=== PATIENT | female | born 1945 | race Caucasian/White ===

== ENCOUNTER 2024-07-16 01:24 | Inpatient (IN) | payer MEDICARE, OTHER ==
[~2024-07-16] VITALS: Ht 167.6 cm; Wt 99.8 kg
[2024-07-16 01:59] LABS: BASOPHILS % 0.1 % (0.0-2.0); HEMATOCRIT. 38.6 % (36.0-48.0); HEMOGLOBIN. 12.8 g/dL (12.0-16.0); LYMPHOCYTES % 12.8 % (20.0-50.0); MEAN CORPUSCULAR HEMOGLOBIN 29.4 pg (28.0-32.0); MEAN CORPUSCULAR HGB CONC 33.1 g/dL (31.0-37.0); MEAN CORPUSCULAR VOLUME 88.9 fL (81.0-99.0); MEAN PLATELET VOLUME 8.4 fl (7.4-10.4); MONOCYTES % 3.2 % (2.0-8.0); NEUTROPHILS % 83.9 % (40.0-76.0); PLATELET 271 x1000/uL (130-400); RED BLOOD CELL COUNT 4.34 mill/uL (4.2-5.4); RED CELL DISTRIBUTION WIDTH 13.6 % (11.6-14.6)
[2024-07-16 02:21] LABS: CHLORIDE 103 mEq/L (98-107); SODIUM 137 mEq/L (136-145)
[2024-07-16 02:22] LABS: CALCIUM 9.6 mg/dL (8.7-10.4); CARBON DIOXIDE 24 mEq/L (21-32)
[2024-07-16 02:27] LABS: GLUCOSE 145 mg/dL (70-105); UREA NITROGEN BLOOD 23 mg/dL (9-23)
[2024-07-16 02:28] LABS: TROPONIN I HIGH SENSITIVITY 21 ng/L (3.0-34)
[2024-07-16] MEDS ORDERED: ACETAMINOPHEN 325MG TABLET PO ONE (04:00)
[2024-07-16 04:32] LABS: POTASSIUM 4.4 mEq/L (3.5-5.1)
[2024-07-16 04:33] LABS: CALCIUM 9.3 mg/dL (8.7-10.4)
[2024-07-16 04:37] LABS: CREATININE 1.1 mg/dL (0.6-1.0)
[2024-07-16 06:30] LABS: TROPONIN I HIGH SENSITIVITY 158 ng/L (3.0-34)
[2024-07-16] MEDS: ACETAMINOPHEN 325MG TABLET PO NR (09:16)
[2024-07-16] MEDS ORDERED: CLONIDINE 0.1MG TABLET PO PRN (12:15)
[2024-07-16] MEDS ORDERED: IPRATROPIUM/ALBUTEROL 0.5-3(2.5)MG/3ML NEB HHN PRN (12:15)
[2024-07-16] MEDS ORDERED: ONDANSETRON HCL 4MG/2ML INJ IV PRN (12:15)
[2024-07-16] MEDS ORDERED: MECLIZINE 12.5MG TABLET PO PRN (13:00)
[2024-07-16] MEDS: ENOXAPARIN 40MG/0.4ML SYR SUBCUT SCH (13:38)
[2024-07-16 20:00] VITALS: BP_SYST 136; BP_SYST 148; BP_DIAS 60; BP_DIAS 61; PULSE 52; PULSE 53; RESP 18; RESP 20; TEMP 36.33624; TEMP 36.8628; O2SAT 99
[2024-07-17] VITALS (7 sets, daily range): BP systolic 108–150; BP diastolic 50–103; PULSE 52–67; RESP 17–20; TEMP 36.05844–37.11408; O2SAT 95–100
[2024-07-17 02:51] LABS: CREATINE KINASE 144 IU/L (34-145)
[2024-07-17 03:23] LABS: TROPONIN I HIGH SENSITIVITY 4462 ng/L (3.0-34)
[2024-07-17] MEDS: ENOXAPARIN 100MG/ML SYR SUBCUT NR (05:56)
[2024-07-17 06:40] LABS: POTASSIUM 3.9 mEq/L (3.5-5.1)
[2024-07-17] MEDS: PANTOPRAZOLE 40MG DR TABLET PO SCH (06:40)
[2024-07-17 06:41] LABS: CALCIUM 9.3 mg/dL (8.7-10.4)
[2024-07-17 06:45] LABS: CREATININE 1.2 mg/dL (0.6-1.0)
[2024-07-17 06:47] LABS: T4 FREE 1.14 ng/dL (0.89-1.76)
[2024-07-17 06:48] LABS: THYROID STIMULATING HORMONE 5.09 uIU/mL (0.55-4.78)
[2024-07-17 06:52] LABS: BASOPHILS % 0.2 % (0.0-2.0); EOSINOPHILS % 1.2 % (0.0-5.0); HEMATOCRIT. 37.9 % (36.0-48.0); HEMOGLOBIN. 12.7 g/dL (12.0-16.0); LYMPHOCYTES % 30.1 % (20.0-50.0); MEAN CORPUSCULAR HEMOGLOBIN 30.8 pg (28.0-32.0); MEAN CORPUSCULAR HGB CONC 33.5 g/dL (31.0-37.0); MEAN CORPUSCULAR VOLUME 91.8 fL (81.0-99.0); MEAN PLATELET VOLUME 8.2 fl (7.4-10.4); MONOCYTES % 7.3 % (2.0-8.0); NEUTROPHILS % 61.2 % (40.0-76.0); PLATELET 238 x1000/uL (130-400); RED BLOOD CELL COUNT 4.13 mill/uL (4.2-5.4); RED CELL DISTRIBUTION WIDTH 13.6 % (11.6-14.6); WHITE BLOOD COUNT 9.1 x1000/uL (4.5-11.0)
[2024-07-17] MEDS: METOPROLOL TARTRATE 25MG TABLET PO SCH (09:00)
[2024-07-17] MEDS: ASPIRIN 81MG EC TABLET PO SCH (09:23)
[2024-07-17 09:45] LABS: PROTHROMBIN TIME 11.4 sec (9.6-11.0)
[2024-07-17] MEDS ORDERED: VERAPAMIL HCL 2.5 MG/1 ML 2ML VIAL IV ONE (13:17)
[2024-07-17] MEDS ORDERED: LIDOCAINE HCL 1% 20ML VIAL ONE (13:17)
[2024-07-17] MEDS ORDERED: IODIXANOL 320MG/ML 100 ML BOTTLE IV ONE (13:17)
[2024-07-17] MEDS ORDERED: HEPARIN 1000 UNITS/ML 10ML ONE (13:17)
[2024-07-17] MEDS ORDERED: DIPHENHYDRAMINE 50MG/ML VIAL ONE (13:54)
[2024-07-17] MEDS ORDERED: FENTANYL CITRATE/PF 50MCG/ML 2ML VIAL ONE (13:54)
[2024-07-17] MEDS ORDERED: MIDAZOLAM HCL 2 MG/2 ML VIAL ONE (13:54)
[2024-07-17] MEDS ORDERED: ATROPINE SULFATE 1MG/10ML SYR IV PRN (15:15)
[2024-07-17] MEDS: ENOXAPARIN 100MG/ML SYR SUBCUT SCH (18:07)
[2024-07-17] MEDS: ATORVASTATIN CALCIUM 20MG TABLET PO SCH (20:52)
[2024-07-17] MEDS: INFLUENZA VACCINE 05/PF 0.5 ML SYRINGE IM ONE (21:00)
[2024-07-17] MEDS: PNEUMOCOCCAL 20-VAL CONJ-DIP CRM 0.5ML IM ONE (21:00)
[2024-07-18] VITALS: BP 106/47; PULSE 55; RESP 20; TEMP 36.16956; O2SAT 97
[2024-07-18 04:00] VITALS: BP 122/52; PULSE 71; RESP 20; TEMP 35.66952; O2SAT 100
[2024-07-18 08:00] VITALS: BP 128/61; PULSE 55; RESP 19; TEMP 36.05844; O2SAT 99
[2024-07-18 08:04] LABS: BASOPHILS % 0.3 % (0.0-2.0); EOSINOPHILS % 1.8 % (0.0-5.0); HEMATOCRIT. 37.8 % (36.0-48.0); HEMOGLOBIN. 12.5 g/dL (12.0-16.0); LYMPHOCYTES % 20.2 % (20.0-50.0); MEAN CORPUSCULAR HEMOGLOBIN 30.1 pg (28.0-32.0); MEAN CORPUSCULAR HGB CONC 33.2 g/dL (31.0-37.0); MEAN CORPUSCULAR VOLUME 90.8 fL (81.0-99.0); MEAN PLATELET VOLUME 8.4 fl (7.4-10.4); MONOCYTES % 7.9 % (2.0-8.0); NEUTROPHILS % 69.8 % (40.0-76.0); PLATELET 234 x1000/uL (130-400); RED BLOOD CELL COUNT 4.17 mill/uL (4.2-5.4); RED CELL DISTRIBUTION WIDTH 13.9 % (11.6-14.6); WHITE BLOOD COUNT 9.7 x1000/uL (4.5-11.0)
[2024-07-18 08:12] LABS: CALCIUM 9.2 mg/dL (8.7-10.4); POTASSIUM 3.9 mEq/L (3.5-5.1)
[2024-07-18 08:18] LABS: CREATININE 1.1 mg/dL (0.6-1.0)
[2024-07-18] MEDS: AMLODIPINE 10MG TABLET PO SCH (09:48)
[2024-07-18] MEDS: FUROSEMIDE 40MG/4ML VIAL IVP SCH (09:48)
[2024-07-18] MEDS: SPIRONOLACTONE 12.5MG TABLET PO SCH (09:48)
[2024-07-18] MEDS ORDERED: ATOR20TA PO (11:41)
[2024-07-18] MEDS ORDERED: ASPI-1406 PO (11:41)
[2024-07-18] MEDS ORDERED: SPIR25TA PO (11:41)
[2024-07-18] MEDS ORDERED: FURO-151 MT (11:41)
[2024-07-18] MEDS ORDERED: PANT40TA51 PO (11:41)
[2024-07-18 12:00] VITALS: BP 125/59; PULSE 58; RESP 17; TEMP 36.114; O2SAT 98
[2024-07-18 16:00] VITALS: BP 126/56; PULSE 63; RESP 15; TEMP 36.3918; O2SAT 100
[2024-07-18] MEDS: SACUBITRIL/VALSARTAN 24MG/26MG TABLET PO SCH (18:28)
[2024-07-18 20:00] VITALS: BP 122/79; PULSE 76; RESP 18; TEMP 37.00296; O2SAT 100
[2024-07-18] MEDS: ACETAMINOPHEN 325MG TABLET PO PRN (20:51)
[2024-07-19] VITALS: BP 118/52; PULSE 60; RESP 19; TEMP 36.55848; O2SAT 92
[2024-07-19 04:00] VITALS: BP 117/52; PULSE 59; RESP 19; TEMP 36.50292; O2SAT 95
[2024-07-19 08:00] VITALS: BP 124/55; PULSE 57; RESP 18; TEMP 36.33624; O2SAT 100
[2024-07-19 12:00] VITALS: BP 134/59; PULSE 63; RESP 19; TEMP 36.28068; O2SAT 97
[2024-07-19] MEDS ORDERED: AMLO5TAB88 MT (15:16)
[2024-07-19] MEDS ORDERED: SACU1TAB MT (15:16)
== END 2024-07-19 16:00 | disposition home or self-care (01) | DRG 280 ==
LOC: ER 01:33 → 5WST 06:10 → EDBEDREQ 06:15 → 7EST 18:15
PROVIDERS: ADMIT Internal Medicine; ATTEND Internal Medicine
PROC: 4A023N7 Measurement of Cardiac Sampling and Pressure, Left Heart, Percutaneous Approach (ICD-10-PCS; principal; 2024-07-17)
PROC: B2110ZZ Fluoroscopy of Multiple Coronary Arteries using High Osmolar Contrast (ICD-10-PCS; 2024-07-17)
DX: I11.0 Hypertensive heart disease with heart failure (principal); I50.21 Acute systolic (congestive) heart failure; I21.A1 Myocardial infarction type 2; J98.11 Atelectasis; I16.0 Hypertensive urgency; I25.10 Atherosclerotic heart disease of native coronary artery without angina pectoris; E11.9 Type 2 diabetes mellitus without complications; E78.00 Pure hypercholesterolemia, unspecified; F32.A Depression, unspecified; Z79.899 Other long term (current) drug therapy
CPT/HCPCS: 36415; 71045; 80048; 80061; 82550; 83036; 83880; 84439; 84443; 84484; 85025; 90686; 90732; 93005; 93306; 93458; 93880; 99285; C1769; C1887; C1893; J1200; J1644; J1650; J1940; J2250; J3010; J3490; Q9967

== ENCOUNTER 2025-01-13 21:24 | Inpatient (IN) | payer OTHER ==
[~2025-01-13] VITALS: Ht 175.3 cm; Wt 88.0 kg
[~2025-01-13 21:24] MED LIST: AMLO5TAB88 MT; ASPI-1406 PO; ATOR20TA PO; FURO-151 MT; PANT40TA51 PO; SACU1TAB MT; SPIR25TA PO
[2025-01-13 23:09] LABS: HEMOGLOBIN. 11.7 g/dL (12.0-16.0); MEAN CORPUSCULAR HEMOGLOBIN 29.5 pg (28.0-32.0); MEAN CORPUSCULAR HGB CONC 32.6 g/dL (31.0-37.0); MEAN CORPUSCULAR VOLUME 90.3 fL (81.0-99.0); MEAN PLATELET VOLUME 8.5 fl (7.4-10.4); PLATELET 211 x1000/uL (130-400); RED BLOOD CELL COUNT 3.99 mill/uL (4.2-5.4); RED CELL DISTRIBUTION WIDTH 13.4 % (11.6-14.6); WHITE BLOOD COUNT 13.5 x1000/uL (4.5-11.0)
[2025-01-13 23:10] LABS: DIFFERENTIAL COMMENT 1
[2025-01-13 23:15] LABS: INR 1.1; PROTHROMBIN TIME 12.2 sec (9.6-11.0)
[2025-01-13 23:16] LABS: CHLORIDE 103 mEq/L (98-107); POTASSIUM 3.6 mEq/L (3.5-5.1); SODIUM 138 mEq/L (136-145)
[2025-01-13 23:17] LABS: CALCIUM 9.4 mg/dL (8.7-10.4); CARBON DIOXIDE 28 mEq/L (21-32)
[2025-01-13 23:19] LABS: ALANINE AMINOTRANSFERASE 8 IU/L (10-49); ALBUMIN 3.9 g/dL (3.2-4.8); ASPARTATE AMINOTRANSFERASE 15 IU/L (<34); BILIRUBIN DIRECT 0.5 mg/dL (<=3.0); BILIRUBIN TOTAL 1.3 mg/dL (0.1-1.0); PROTEIN TOTAL 6.7 g/dL (6.0-8.3)
[2025-01-13 23:22] LABS: CREATININE 1.2 mg/dL (0.6-1.0); GLUCOSE 111 mg/dL (70-105); PLATELET ESTIMATE NORMAL; UREA NITROGEN BLOOD 17 mg/dL (9-23)
[2025-01-13 23:25] LABS: TROPONIN I HIGH SENSITIVITY 922 ng/L (3.0-34)
[2025-01-13] MEDS: FAMOTIDINE 20MG/2ML VIAL IV ONE (23:27)
[2025-01-14] MEDS ORDERED: HEPARIN 25,000 UNITS PREMIX 250 ML IV ONE (01:45)
[2025-01-14] MEDS ORDERED: HEPARIN 5000 UNITS/ML VIAL IV ONE (01:45)
[2025-01-14] MEDS: HEPARIN 25,000 UNITS PREMIX 250 ML IV SCH (02:56)
[2025-01-14] MEDS: HEPARIN 60 UNITS/KG BOLUS IV SCH (02:58)
[2025-01-14 04:05] LABS: CLARITY URINE TURBID (CLEAR); COLOR URINE YELLOW (YELLOW); GLUCOSE URINE NEGATIVE (NEGATIVE); KETONES URINE NEGATIVE (NEGATIVE); LEUKOCYTE ESTERASE URINE 1+ (NEGATIVE); NITRITE URINE NEGATIVE (NEGATIVE); OCCULT BLOOD URINE 1+ (NEGATIVE); PROTEIN URINE TRACE (NEGATIVE)
[2025-01-14 04:49] LABS: WBC URINE 0-2 /hpf (0-2)
[2025-01-14 04:50] LABS: BACTERIA URINE 4+; SQUAMOUS EPITHELIAL CELL URINE NONE SEEN /lpf (RARE/1+)
[2025-01-14 04:58] VITALS: BP 150/59; PULSE 52; RESP 19; TEMP 36.6
[2025-01-14 07:09] LABS: BASOPHILS % 0.2 % (0.0-2.0); EOSINOPHILS % 0.1 % (0.0-5.0); HEMATOCRIT. 35.4 % (36.0-48.0); HEMOGLOBIN. 11.4 g/dL (12.0-16.0); LYMPHOCYTES % 9.2 % (20.0-50.0); MEAN CORPUSCULAR HEMOGLOBIN 29.1 pg (28.0-32.0); MEAN CORPUSCULAR HGB CONC 32.3 g/dL (31.0-37.0); MEAN CORPUSCULAR VOLUME 90.1 fL (81.0-99.0); MEAN PLATELET VOLUME 8.7 fl (7.4-10.4); MONOCYTES % 5.1 % (2.0-8.0); NEUTROPHILS % 85.4 % (40.0-76.0); PLATELET 241 x1000/uL (130-400); RED BLOOD CELL COUNT 3.92 mill/uL (4.2-5.4); RED CELL DISTRIBUTION WIDTH 13.8 % (11.6-14.6); WHITE BLOOD COUNT 14.2 x1000/uL (4.5-11.0)
[2025-01-14 07:13] LABS: POTASSIUM 3.4 mEq/L (3.5-5.1)
[2025-01-14 07:15] LABS: CALCIUM 9.3 mg/dL (8.7-10.4)
[2025-01-14 07:19] LABS: CREATININE 1.1 mg/dL (0.6-1.0)
[2025-01-14 08:00] VITALS: BP 88/70; PULSE 62; RESP 17; TEMP 36.8; O2SAT 96
[2025-01-14] MEDS ORDERED: HEPARIN BOLUS PRN aPTT <30 IV (08:00)
[2025-01-14] MEDS ORDERED: HEPARIN BOLUS PRN aPTT 30-44 IV (08:00)
[2025-01-14] MEDS: PANTOPRAZOLE 40MG DR TABLET PO SCH (09:25)
[2025-01-14] MEDS: FUROSEMIDE 40MG TABLET PO SCH (09:25)
[2025-01-14] MEDS: ASPIRIN 81MG TABLET PO SCH (09:25)
[2025-01-14] MEDS: AMLODIPINE 5MG TABLET PO SCH (10:18)
[2025-01-14] MEDS ORDERED: MAGNESIUM/ALUMINUM HYDROXIDE/SIMETHICONE 30ML UDC PO PRN (10:30)
[2025-01-14] MEDS: CEFTRIAXONE 1GM/50ML 50 ML IV SCH (11:02)
[2025-01-14] MEDS: DEXT 5%/0.45% NACL 1000ML 1,000 ML IV SCH (11:03)
[2025-01-14] MEDS ORDERED: LOSARTAN 50 MG TABLET PO SCH ×2 (11:45)
[2025-01-14 12:00] VITALS: BP 152/59; PULSE 65; RESP 17; TEMP 36.9; O2SAT 94
[2025-01-14 15:57] LABS: TROPONIN I HIGH SENSITIVITY 4279 ng/L (3.0-34)
[2025-01-14 16:00] VITALS: BP 122/64; PULSE 84; RESP 17; TEMP 36.9; O2SAT 96
[2025-01-14] MEDS: GUAIFENESIN 200MG/10ML SUGAR FREE UDC PO PRN (16:10)
[2025-01-14] MEDS: EMPAGLIFLOZIN 10MG TABLET PO SCH (16:10)
[2025-01-14] MEDS: ENOXAPARIN 100MG/ML SYR SUBCUT SCH (16:11)
[2025-01-14 16:46] VITALS: PULSE 64; RESP 17; O2SAT 94
[2025-01-14 20:00] VITALS: BP 125/60; PULSE 65; RESP 18; TEMP 36.7; O2SAT 99
[2025-01-14] MEDS: ATORVASTATIN CALCIUM 20MG TABLET PO SCH (20:52)
[2025-01-14] MEDS: CARVEDILOL 6.25 MG TABLET PO SCH (20:53)
[2025-01-14] MEDS: SACUBITRIL/VALSARTAN 24MG/26MG TABLET PO SCH (20:58)
[2025-01-14] MEDS ORDERED: SACUBITRIL/VALSARTAN 24MG/26MG TABLET PO SCH (21:00)
[2025-01-14] MEDS ORDERED: ATORVASTATIN CALCIUM 20MG TABLET PO SCH (21:00)
[2025-01-15] MEDS: LORAZEPAM 0.5MG TABLET PO PRN (00:28)
[2025-01-15 00:48] VITALS: BP 112/68; PULSE 75; RESP 15; O2SAT 99
[2025-01-15 04:00] VITALS: BP 124/63; PULSE 75; RESP 15; O2SAT 98
[2025-01-15] MEDS ORDERED: PANTOPRAZOLE 40MG DR TABLET PO SCH (06:50)
[2025-01-15 07:09] LABS: BASOPHILS % 0.6 % (0.0-2.0); EOSINOPHILS % 3.3 % (0.0-5.0); HEMATOCRIT. 32.9 % (36.0-48.0); HEMOGLOBIN. 11.4 g/dL (12.0-16.0); LYMPHOCYTES % 19.1 % (20.0-50.0); MEAN CORPUSCULAR HEMOGLOBIN 31.2 pg (28.0-32.0); MEAN CORPUSCULAR HGB CONC 34.6 g/dL (31.0-37.0); MEAN PLATELET VOLUME 8.7 fl (7.4-10.4); PLATELET 249 x1000/uL (130-400); RED BLOOD CELL COUNT 3.65 mill/uL (4.2-5.4); RED CELL DISTRIBUTION WIDTH 13.1 % (11.6-14.6); WHITE BLOOD COUNT 10.2 x1000/uL (4.5-11.0)
[2025-01-15 07:15] LABS: CHLORIDE 103 mEq/L (98-107); POTASSIUM 3.5 mEq/L (3.5-5.1); SODIUM 140 mEq/L (136-145)
[2025-01-15 07:16] LABS: CALCIUM 9.2 mg/dL (8.7-10.4); CARBON DIOXIDE 28 mEq/L (21-32)
[2025-01-15 07:21] LABS: CREATININE 1.3 mg/dL (0.6-1.0); GLUCOSE 119 mg/dL (70-105); TRIGLYCERIDE 80 mg/dL (0-150); UREA NITROGEN BLOOD 16 mg/dL (9-23)
[2025-01-15 07:22] LABS: LDL CHOLESTEROL 60 mg/dL (5-100)
[2025-01-15 07:23] LABS: CHOLESTEROL 126 mg/dL (<200); HDL CHOLESTEROL 41 mg/dL (>65)
[2025-01-15 07:26] LABS: THYROID STIMULATING HORMONE 1.72 uIU/mL (0.55-4.78)
[2025-01-15 08:00] VITALS: BP 109/54; PULSE 53; RESP 16; TEMP 36.8; O2SAT 95
[2025-01-15] MEDS: SPIRONOLACTONE 12.5MG TABLET PO SCH (08:11)
[2025-01-15] MEDS: ASPIRIN 81MG EC TABLET PO SCH (08:11)
[2025-01-15] MEDS ORDERED: FUROSEMIDE 40MG TABLET PO SCH (09:00)
[2025-01-15] MEDS ORDERED: AMLODIPINE 5MG TABLET PO SCH (09:00)
[2025-01-15 09:41] LABS: TROPONIN I HIGH SENSITIVITY 2729 ng/L (3.0-34)
[2025-01-15] MEDS ORDERED: FUROSEMIDE 40MG/4ML VIAL IVP NR (10:30)
[2025-01-15] MEDS ORDERED: GUAIFENESIN 200MG/10ML SUGAR FREE UDC PO PRN (10:30)
[2025-01-15] MEDS: GUAIFENESIN 200MG/10ML SUGAR FREE UDC PO NR (10:50)
[2025-01-15] MEDS: POTASSIUM CHLORIDE 20MEQ/PACKET PO NR (10:50)
[2025-01-15] MEDS: MAGNESIUM OXIDE 400MG TABLET PO SCH (10:50)
[2025-01-15 12:00] VITALS: BP 95/56; PULSE 80; RESP 22; TEMP 36.3; O2SAT 100
[2025-01-15 13:12] LABS: INFLUENZA TYPE A Presumptive Negative (Pres. Neg.)
[2025-01-15 13:13] LABS: INFLUENZA TYPE B Presumptive Negative (Pres. Neg.); RESPIRATORY SYNCYTIAL VIRUS Not Detected (Not Detectd)
[2025-01-15 16:00] VITALS: BP 110/84; PULSE 88; RESP 16; TEMP 36.1; O2SAT 97
[2025-01-15] MEDS: METHYLPREDNISOLONE SOD SUCC 125MG/2ML (ACT-O-VIAL) IV SCH (16:56)
[2025-01-15] MEDS: MAGNESIUM 2 G PREMIX 50 ML IV NR (16:56)
[2025-01-15] MEDS: FUROSEMIDE 40MG/4ML VIAL IVP NR (16:57)
[2025-01-15 17:20] VITALS: PULSE 82; RESP 24
[2025-01-15] MEDS: IPRATROPIUM/ALBUTEROL 0.5-3(2.5)MG/3ML NEB NEB PRN (17:21)
[2025-01-16] VITALS (9 sets, daily range): BP systolic 110–169; BP diastolic 50–142; PULSE 62–91; RESP 15–24; TEMP 36.3–37.2; O2SAT 90–99
[2025-01-16 00:23] LABS: CREATINE KINASE 312 IU/L (34-145)
[2025-01-16] MEDS: ACETAMINOPHEN 325MG TABLET PO PRN (01:12)
[2025-01-16 08:24] LABS: BASOPHILS % 0.1 % (0.0-2.0); HEMATOCRIT. 36.6 % (36.0-48.0); HEMOGLOBIN. 12.3 g/dL (12.0-16.0); LYMPHOCYTES % 13.9 % (20.0-50.0); MEAN CORPUSCULAR HEMOGLOBIN 30.1 pg (28.0-32.0); MEAN CORPUSCULAR HGB CONC 33.6 g/dL (31.0-37.0); MEAN CORPUSCULAR VOLUME 89.7 fL (81.0-99.0); MEAN PLATELET VOLUME 8.7 fl (7.4-10.4); MONOCYTES % 1.6 % (2.0-8.0); NEUTROPHILS % 84.4 % (40.0-76.0); PLATELET 258 x1000/uL (130-400); RED BLOOD CELL COUNT 4.08 mill/uL (4.2-5.4); RED CELL DISTRIBUTION WIDTH 13.3 % (11.6-14.6); WHITE BLOOD COUNT 6.5 x1000/uL (4.5-11.0)
[2025-01-16 08:26] LABS: POTASSIUM 3.9 mEq/L (3.5-5.1)
[2025-01-16 08:27] LABS: CALCIUM 10.1 mg/dL (8.7-10.4)
[2025-01-16 08:32] LABS: CREATININE 1.3 mg/dL (0.6-1.0)
[2025-01-16] MEDS: FUROSEMIDE 40MG/4ML VIAL IVP SCH (08:36)
[2025-01-16] MEDS: POTASSIUM CHLORIDE 20MEQ/PACKET PO SCH (08:39)
[2025-01-16] MEDS ORDERED: EMPA10TA PO (14:12)
[2025-01-16] MEDS ORDERED: ZOLP10TA2 PO (14:12)
[2025-01-16] MEDS ORDERED: FLUO40CA49 PO (14:12)
[2025-01-16] MEDS ORDERED: VALS40TA11 PO (14:12)
[2025-01-16] MEDS ORDERED: TRAZ-252 PO (14:12)
[2025-01-16] MEDS ORDERED: METO-396 PO (14:12)
[2025-01-16] MEDS ORDERED: MECL-299 PO (14:12)
[2025-01-16] MEDS: PROMETHAZINE/DEXTROMETHORPHAN 6.25-15MG/5ML PO PRN (14:46)
[2025-01-16] MEDS: FUROSEMIDE 100MG/10ML VIAL IVP SCH (16:24)
[2025-01-16] MEDS: BENZONATATE 100MG CAPSULE PO PRN (18:14)
[2025-01-16] MEDS: GUAIFENESIN 600MG ER TABLET PO SCH (20:32)
[2025-01-16] MEDS: CARVEDILOL 12.5MG TABLET PO SCH (20:33)
[2025-01-17] VITALS: BP 92/68; PULSE 76; RESP 25; TEMP 36.8; O2SAT 95
[2025-01-17] MEDS: GUAIFENESIN/CODEINE 200-20MG/10ML UDC PO PRN (02:46)
[2025-01-17 04:00] VITALS: BP 93/78; PULSE 69; RESP 23; TEMP 36.2; O2SAT 97
[2025-01-17 06:58] LABS: BASOPHILS % 0.2 % (0.0-2.0); EOSINOPHILS % 0.1 % (0.0-5.0); HEMATOCRIT. 29.4 % (36.0-48.0); MEAN CORPUSCULAR HEMOGLOBIN 30.7 pg (28.0-32.0); MEAN CORPUSCULAR VOLUME 90.4 fL (81.0-99.0); MONOCYTES % 5.4 % (2.0-8.0); NEUTROPHILS % 85.3 % (40.0-76.0); PLATELET 302 x1000/uL (130-400); RED BLOOD CELL COUNT 3.25 mill/uL (4.2-5.4); RED CELL DISTRIBUTION WIDTH 13.2 % (11.6-14.6); WHITE BLOOD COUNT 10.6 x1000/uL (4.5-11.0)
[2025-01-17 07:14] LABS: CALCIUM 9.3 mg/dL (8.7-10.4)
[2025-01-17 07:35] LABS: CREATININE 1.7 mg/dL (0.6-1.0)
[2025-01-17 07:55] LABS: BG BASE EXCESS 0.7 mmol/L (-2.0-3.0); BG CARBOXYHEMOGLOBIN 0.1 % (0.5-1.5); BG DEOXYHEMOGLOBIN 2.3 % (0.0-5.0); BG HCO3 ACT 24.4 mmol/L (21.0-28.0); BG METHEMOGLOBIN 0.3 % (0.5-1.5); BG OXYGEN SATURATION 97.7 % (94.0-98.0); BG OXYHEMOGLOBIN 97.3 % (94.0-98.0); BG PCO2 35.4 mmHg (32.0-45.0); BG PH 7.456 (7.350-7.450); BG PO2 107.6 mmHg (83.0-108.0); BG TOTAL HEMOGLOBIN 10.3 g/dL (12.0-16.0); BG VENT MODE NASAL CANNULA
[2025-01-17 08:00] VITALS: BP 100/84; PULSE 62; RESP 20; TEMP 36.7; O2SAT 99
[2025-01-17 12:00] VITALS: BP 83/56; PULSE 84; RESP 18; TEMP 36.2; O2SAT 100
[2025-01-17 16:00] VITALS: BP 99/55; PULSE 64; RESP 26; TEMP 36.2; O2SAT 100
[2025-01-17] MEDS: ONDANSETRON HCL 4MG/2ML INJ IV PRN (17:10)
[2025-01-17 20:00] VITALS: BP 107/60; PULSE 73; RESP 18; TEMP 36.7; O2SAT 100
[2025-01-17] MEDS: CARVEDILOL 6.25 MG TABLET PO SCH (21:00)
[2025-01-17] MEDS ORDERED: ACETAMINOPHEN 325MG TABLET PO PRN (22:15)
[2025-01-17] MEDS: LACTULOSE 20G/30ML UDC PO NR (23:31)
[2025-01-18] VITALS (42 sets, daily range): BP systolic 47–171; BP diastolic 20–104; PULSE 46–110; RESP 17–36; TEMP 33.9–36.8; O2SAT 83–99
[2025-01-18] MEDS: NOREPINEPHRINE 8MG/250ML PMX 250 ML IV PRN (06:24)
[2025-01-18 07:15] LABS: CALCIUM 8.6 mg/dL (8.7-10.4); POTASSIUM 5.2 mEq/L (3.5-5.1)
[2025-01-18 07:22] LABS: CREATININE 3.2 mg/dL (0.6-1.0)
[2025-01-18] MEDS ORDERED: LIDOCAINE HCL 1% 10 MG/ML 10ML VIAL ONE ×2 (07:41→10:49)
[2025-01-18] MEDS ORDERED: AMLODIPINE 2.5MG TABLET PO SCH (09:00)
[2025-01-18] MEDS ORDERED: FUROSEMIDE 40MG TABLET PO SCH (09:00)
[2025-01-18] MEDS: DOPAMINE 400MG/250ML PREMIX 250 ML IV PRN (09:32)
[2025-01-18 09:35] LABS: BG BASE EXCESS -16.8 mmol/L (-2.0-3.0); BG CARBOXYHEMOGLOBIN 0.5 % (0.5-1.5); BG DEOXYHEMOGLOBIN 0.7 % (0.0-5.0); BG FRACTION INSPIRED OXYGEN 50; BG HCO3 ACT 8.6 mmol/L (21.0-28.0); BG METHEMOGLOBIN 0.3 % (0.5-1.5); BG OXYGEN SATURATION 99.3 % (94.0-98.0); BG OXYHEMOGLOBIN 98.5 % (94.0-98.0); BG PCO2 19.5 mmHg (32.0-45.0); BG PH 7.261 (7.350-7.450); BG PO2 237.1 mmHg (83.0-108.0); BG SAMPLE SITE LEFT RADIAL; BG TOTAL HEMOGLOBIN 7.6 g/dL (12.0-16.0); BG VENT MODE MASK - BIPAP
[2025-01-18] MEDS: SODIUM BICARBONATE 8.4% 50MEQ/50ML SYR IV NR ×3 (09:54→15:22)
[2025-01-18] MEDS: PIPERACILLIN/TAZO 3.375G/50ML 50 ML IV SCH (10:40)
[2025-01-18] MEDS: SODIUM BICARBONATE 50 MEQ in DEXT 5%/0.45% NACL 1000ML 950 ML IV SCH (10:40)
[2025-01-18] MEDS ORDERED: HEPARIN 1000 UNITS/ML 10ML ONE (11:27)
[2025-01-18] MEDS ORDERED: NALOXONE HCL 0.4MG/ML VIAL IV PRN (11:30)
[2025-01-18 11:52] LABS: IRON 125 ug/dL (50-170)
[2025-01-18 11:55] LABS: TOTAL IRON BINDING CAPACITY 195 ug/dl (250-425)
[2025-01-18] MEDS: MORPHINE SULFATE 2 MG/ML INJ (NOT FOR IM USE) IV PRN (12:17)
[2025-01-18 13:53] LABS: MEAN CORPUSCULAR HEMOGLOBIN 28.6 pg (28.0-32.0); MEAN CORPUSCULAR HGB CONC 28.9 g/dL (31.0-37.0); MEAN CORPUSCULAR VOLUME 98.9 fL (81.0-99.0); MEAN PLATELET VOLUME 9.6 fl (7.4-10.4); PLATELET 246 x1000/uL (130-400); RED BLOOD CELL COUNT 2.12 mill/uL (4.2-5.4); RED CELL DISTRIBUTION WIDTH 14.5 % (11.6-14.6); WHITE BLOOD COUNT 29.5 x1000/uL (4.5-11.0)
[2025-01-18 14:03] LABS: DIFFERENTIAL COMMENT 1
[2025-01-18 14:09] LABS: HEMOGLOBIN. 6.1 g/dL (12.0-16.0)
[2025-01-18] MEDS: EPINEPHRINE 5 MG in SODIUM CHLORIDE 0.9% 245 ML IV PRN (14:18)
[2025-01-18] MEDS: PHENYLEPHRINE 50MG/250ML PMX 250 ML IV PRN (14:19)
[2025-01-18 14:29] LABS: NUCLEATED RED BLOOD CELLS 1 /100 WBC
[2025-01-18 14:30] LABS: PLATELET ESTIMATE NORMAL
[2025-01-18 14:33] LABS: CHLORIDE 94 mEq/L (98-107); SODIUM 135 mEq/L (136-145)
[2025-01-18 14:34] LABS: CALCIUM 8.1 mg/dL (8.7-10.4)
[2025-01-18 14:39] LABS: CREATININE 3.6 mg/dL (0.6-1.0); GLUCOSE 74 mg/dL (70-105); UREA NITROGEN BLOOD 48 mg/dL (9-23)
[2025-01-18 14:41] LABS: CREATINE KINASE 782 IU/L (34-145)
[2025-01-18 14:42] LABS: CARBON DIOXIDE < 10 mEq/L (21-32); POTASSIUM 6.8 mEq/L (3.5-5.1)
[2025-01-18 14:47] LABS: BG BASE EXCESS -25.1 mmol/L (-2.0-3.0); BG FRACTION INSPIRED OXYGEN 50; BG HCO3 ACT 4.4 mmol/L (21.0-28.0); BG METHEMOGLOBIN 0.3 % (0.5-1.5); BG OXYHEMOGLOBIN 97.7 % (94.0-98.0); BG PCO2 19.4 mmHg (32.0-45.0); BG PH 6.973 (7.350-7.450); BG PO2 216.7 mmHg (83.0-108.0); BG SAMPLE SITE RIGHT RADIAL; BG TOTAL HEMOGLOBIN 6.4 g/dL (12.0-16.0); BG VENT MODE MASK - BIPAP
[2025-01-18] MEDS ORDERED: SODIUM POLYSTYRENE SULFONATE 15 G/60 ML BOT PO ONE (15:00)
[2025-01-18 15:02] LABS: HEPATITIS B SURFACE ANTIGEN NEGATIVE (Negative)
[2025-01-18] MEDS: VASOPRESSIN 20 UNIT in SODIUM CHLORIDE 0.9% 99 ML IV PRN (15:05)
[2025-01-18 15:22] LABS: HEPATITIS A AB IGM NEGATIVE (Negative)
[2025-01-18] MEDS: DEXTROSE 50% WATER 50ML SYRINGE IV NR (15:22)
[2025-01-18] MEDS: CALCIUM CHLORIDE 1GM/10ML SYR IV NR (15:22)
[2025-01-18 15:23] LABS: HEPATITIS B CORE AB IGM NEGATIVE (Negative); HEPATITIS C AB NON REACTIVE (Neg) (Negative)
[2025-01-18] MEDS: INSULIN REGULAR (HUMULIN R) 1000UNITS/10ML VIAL IV NR (15:25)
[2025-01-18] MEDS ORDERED: SODIUM ZIRCONIUM CYCLOSILICATE 10GM/PACKET PO NR (15:30)
[2025-01-18] MEDS ORDERED: MORPHINE SULFATE/PF 1 MG/ML 100 MG in BAG 1 EACH IV PRN (17:00)
[2025-01-18] MEDS: MORPHINE (DRIP)100 MG in DEXT 5% WATER 100 ML IV PRN (17:42)
[2025-01-18] MEDS: MORPHINE SULFATE 4 MG/ML INJ (FOR IV/IM USE) IV NR (17:58)
== END 2025-01-18 18:16 | DRG 871 ==
LOC: ER 21:24 → 3WST 01-14 00:13 → EDBEDREQTM 01-14 00:32 → EDBEDREQ 01-14 00:32 → CVICU 01-18 06:00
PROVIDERS: ADMIT Internal Medicine; ATTEND Internal Medicine
PROC: 02HV33Z Insertion of Infusion Device into Superior Vena Cava, Percutaneous Approach (ICD-10-PCS; principal; 2025-01-18)
PROC: B548ZZA Ultrasonography of Superior Vena Cava, Guidance (ICD-10-PCS; 2025-01-18)
PROC: 02HV33Z Insertion of Infusion Device into Superior Vena Cava, Percutaneous Approach (ICD-10-PCS; 2025-01-18)
PROC: B548ZZA Ultrasonography of Superior Vena Cava, Guidance (ICD-10-PCS; 2025-01-18)
PROC: 5A09357 Assistance with Respiratory Ventilation, Less than 24 Consecutive Hours, Continuous Positive Airway Pressure (ICD-10-PCS; 2025-01-18)
DX: A41.9 Sepsis, unspecified organism (principal); I21.4 Non-ST elevation (NSTEMI) myocardial infarction; I50.23 Acute on chronic systolic (congestive) heart failure; J96.01 Acute respiratory failure with hypoxia; N17.0 Acute kidney failure with tubular necrosis; R65.21 Severe sepsis with septic shock; I13.0 Hypertensive heart and chronic kidney disease with heart failure and stage 1 through stage 4 chronic kidney disease, or unspecified chronic kidney disease; G93.40 Encephalopathy, unspecified; N39.0 Urinary tract infection, site not specified; E87.1 Hypo-osmolality and hyponatremia; E87.20 Acidosis, unspecified; I42.9 Cardiomyopathy, unspecified; E86.0 Dehydration; I35.1 Nonrheumatic aortic (valve) insufficiency; Z20.822 Contact with and (suspected) exposure to COVID-19; Z66 Do not resuscitate; J40 Bronchitis, not specified as acute or chronic; E83.42 Hypomagnesemia; E87.6 Hypokalemia; I25.10 Atherosclerotic heart disease of native coronary artery without angina pectoris; K44.9 Diaphragmatic hernia without obstruction or gangrene; R73.9 Hyperglycemia, unspecified; K80.20 Calculus of gallbladder without cholecystitis without obstruction; D64.9 Anemia, unspecified; E78.00 Pure hypercholesterolemia, unspecified; E87.5 Hyperkalemia; N18.9 Chronic kidney disease, unspecified; Z79.899 Other long term (current) drug therapy; Z87.11 Personal history of peptic ulcer disease
CPT/HCPCS: 36415; 36556; 36573; 36600; 71045; 71250; 74018; 76937; 80048; 80061; 80076; 81003; 82375; 82550; 82805; 82962; 83540; 83550; 83605; 83735; 83880; 84145; 84443; 84484; 85025; 86705; 86709; 86850; 86900; 87070; 87340; 87420; 87426; 87804; 93005; 93306; 94070; 94640; 94660; 99291; A4606; C1725; C1752; J0696; J1265; J1644; J1650; J1815; J1940; J2003; J2270; J2405; J2543; J2919; J3475; J3490